=== PATIENT | male | born 1950 | race Caucasian/White ===

== ENCOUNTER 2017-09-02 00:55 | Inpatient (IN) | payer OTHER, MEDICARE ==
[~2017-09-02] VITALS: Ht 170.2 cm; Wt 98.9 kg
[~2017-09-02 00:55] MED LIST: B-1100 MG PO; COZAAR50 M1 PO; FENOFIBRATE160 M1 PO; FOLIC ACID1 M1 PO; HYDROCHLOROTH12.5 M3 PO; LISINOPRIL20 M1 PO; PANTOPRAZOLE SO40 M1 PO; PEPCID40 M1 PO; SERTRALINE HCL50 MG PO; VITAMIN B-121000 MC3 PO
[2017-09-02] MEDS ORDERED: MIRALAX17 G1 PO (08:47)
[2017-09-02] MEDS ORDERED: COLACE100 M1 PO (08:47)
[2017-09-02] MEDS ORDERED: MS CONTIN15 M3 PO (08:47)
[2017-09-02] MEDS ORDERED: PROTONIX20 M1 PO (08:47)
[2017-09-02] MEDS ORDERED: DILAUDID2 M1 PO (08:47)
[2017-09-02] MEDS ORDERED: ASPIRIN EC325 M2 PO (08:47)
--- NOTE | 2017-09-02 08:53 | Patient Discharge Instructions ---
Discharge Instructions General Discharge Information You were seen/treated for: joint pain You had these procedures: right total hip replacement Watch for these problems: temp greater than 101. redness and drainage from wound Other wound care: keep wound clean and dry. OK to shower no baths or swimming Diet Continue normal diet: Yes Activity Activity Self Limited: Yes Activity Limited to: Weight bear as tolerated Acute Coronary Syndrome Inclusion Criteria At DC or during hospital stay patient has or had the following: ACS DIAGNOSIS No Discharge Core Measures Meds if any: Prescribed or Continued at Discharge Meds if any: NOT Prescribed or Continued at Discharge Congestive Heart Failure Inclusion Criteria At DC or during hospital stay patient has or had the following: CHF DIAGNOSIS No Discharge Core Measures Meds if any: Prescribed or Continued at Discharge Meds if any: NOT Prescribed or Continued at Discharge Cerebrovascular accident Inclusion Criteria At DC or during hospital stay patient has or had the following: CVA/TIA Diagnosis No Discharge Core Measures Meds if any: Prescribed or Continued at Discharge Meds if any: NOT Prescribed or Continued at Discharge Venous thromboembolism Inclusion Criteria VTE Diagnosis No VTE Type NONE VTE Confirmed by (Test) NONE Discharge Core Measures - Per Current guidelines, there needs to be overlap - treatment for the first 5 days of Warfarin therapy. - If discharged on Warfarin prior to 5 days of - overlap therapy, the patient will need to be - assessed for post discharge needs including - *Post discharge parental anticoagulation - *Warfarin and/or parental anticoagulation education - *Follow up date to check INR post discharge At least 5 days overlap therapy as Inpatient No Meds if any: Prescribed or Continued at Discharge Note: Overlap Therapy is Warfarin and Anticoagulant Meds if any: NOT Prescribed or Continued at Discharge
--- NOTE | 2017-09-02 08:56 | Admission Core Measures ---
Acute Coronary Syndrome (CM) ACS Core Measures Acute Coronary Syndrome Diagnosis No Congestive Heart Failure (NEW) CHF Core Measures Congestive Heart Failure Diagnosis No Cerebrovascular Accident (NEW) CVA Core Measures CVA/TIA Diagnosis No Venous Thromboembolism VTE Core Ricky (View Protocol) VTE Risk Factors Surgery No Mechanical VTE Prophylaxis d/t N/A MechProphylax Ordered No VTE Pharm Prophylaxis d/t NA PharmProphylax ordered Problem List As ranked by this Provider includes Assessment & Plan 1. Status post total hip replacement, right HOME MEDS Home Med List Aspirin (Ecotrin*) 325 MG TABLET.DR 1 TAB PO BID ANTICOAGULATION Cyanocobalamin (Vitamin B-12) 1,000 MCG TABLET 1 TAB PO DAILY SUPPLEMENT ( Reported) Docusate Sodium (Colace) 100 MG CAPSULE 1 CAP PO BID STOOL SOFTENER Fenofibrate 160 MG TABLET 1 TAB PO DAILY CHOLESTEROL/TRIGLYCERIDES (Reported) Folic Acid 1 MG TABLET 1 TAB PO DAILY SUPPLEMENT (Reported) Hydromorphone HCl (Dilaudid) 2 MG TABLET 1-2 TAB PO Q4-6 PRN PRN PAIN Losartan Potassium (Cozaar) 50 MG TABLET 1 TAB PO DAILY BP (Reported) Morphine Sulfate (Ms Contin) 15 MG TABLET.ER 1 TAB PO BID PAIN Pantoprazole Sodium (Protonix) 20 MG TABLET.DR 1 TAB PO DAILY GI PROTECTION Polyethylene Glycol 3350 (Miralax) 17 GRAM POWD.PACK 1 PAC PO DAILY CONSTIPATION Sertraline HCl 50 MG TABLET 1 TAB PO DAILY MENTAL HEALTH (Reported) Thiamine HCl (B-1) 100 MG TABLET 1 TAB PO DAILY SUPPLEMENT (Reported)
--- NOTE | 2017-09-02 09:00 | Surg Short-stay <48hrs Dis Sum ---
Visit Information Visit Dates Admission Date: 09/02/17 Discharge Date: 09/02/17 Surgical Short Stay DC Summary Admission Diagnosis: R hip OA Final Diagnosis: SP R ANITHA Procedure(s): SP R ANITHA Summary/Significant Findings: 09/02/17 Pt presented for elective R ANITHA, pt tolerated procedure well. Postoperatively, their pain was managed, they voided and was ambulating with PT. WBAT. Cleared by PT for discharge. Condition at Discharge: stable Discharge Disposition: home health services Discharge instructions provided to patient/family: Yes Post discharge follow-up plan: scheduled appointment with Dr. Altamirano in 6 weeks Copies to: Pavel Altamirano MD
--- NOTE | 2017-09-02 10:24 | RADIOLOGY REPORT ---
EXAMINATION: XR HIP, RIGHT CLINICAL INFORMATION: Status-post right hip total arthroplasty. COMPARISON: None. TECHNIQUE: AP and frog-leg lateral views of the right hip. FINDINGS: Prosthetic components of the right total hip arthroplasty are appropriately aligned. No periprosthetic fracture. Gas from recent surgery is present in the surrounding soft tissues. There are femoral atherosclerotic calcifications. IMPRESSION: Normal postoperative appearance of the right total hip prosthesis.
[2017-09-02 10:45] VITALS: BP 160/92
--- NOTE | 2017-09-02 12:28 | PN- Orthopedic ---
Subjective Subjective: PT SITTING IN CHAIR, NO COMPLAINTS. PT IS CONTROLLED. PT AMBULATED WITH PT TOLERATING REG DIET. VOIDED SPONTANEOUSLY Objective Vital Signs and I&Os Vital Signs Date Time Temp Pulse Resp B/P B/P Pulse O2 O2 Flow FiO2 Mean Ox Delivery Rate 09/02 1045 95 Room Air 09/02 1045 97.5 74 18 160/92 95 Room Air Intake & Output 09/02 1600 09/02 0800 09/02 0000 09/01 1600 09/01 0800 09/01 0000 Intake Total 400 Output Total 250 Balance 150 Intake, Oral 400 Output, Urine 250 Patient 218 lb Weight Weight Reported by Patient Measurement Method Physical Exam: GEN- NAD RESP- CLEAR EXT- RIGHT HIP SOFT, DRESSING CLEAN AND DRY. DISTAL SENSATION AND MOVEMENT INTACT. NO CALF TENDERNESS Assessment/Plan Assessment/Plan 67YO M SP RIGHT ANITHA POD0 WILL DC TO HOME WITH HEALTH SERVICES TODAY CLEARED BY PT REG DIET FOLLOW-UP APPINTMENT WITH JAZMIN IN 6 WEEKS DVT PPX- ASA 325 BID ENCOURAGE AMBULATION- WBAT Core Measures Venous Thromboembolism VTE Risk Factors Surgery No Mechanical VTE Prophylaxis d/t N/A MechProphylax Ordered No VTE Pharm Prophylaxis d/t NA PharmProphylax ordered
--- NOTE | 2017-09-02 13:42 | Operative Report ---
Operative/Inv Procedure Report Surgery Date: 09/02/17 Name of Procedure: Right total hip replacement Pre-Operative Diagnosis: Primary right hip DJD Post-Operative Diagnosis: Same Estimated Blood Loss: 250 Surgeon/Support Assistant: Evelia WHITE,Pavel Wesley Anesthesia: block Operative/Procedure Note Note: Description of Procedure: The patient was taken to the operating room and positively identified. After induction of spinal anesthesia and administration of appropriate pre-operative antibiotics, the patient was positioned supine on the operating room table and all bony prominences were well padded. After performing a surgical timeout, the right lower extremity was prepped and draped in the usual sterile fashion. A direct anterior approach was made to the right hip. The incision was carried sharply through superficial soft tissues to the level of the fascia. Meticulous hemostasis was maintained with Bovie electocautery. The fascia over the tensor fascia alberto muscle was opened sharply and the interval between the TFL and the sartorius was entered bluntly taking care to stay lateral to the lateral femoral cutaneous nerve. Retractors were placed around the femoral neck and the pericapsular fat was identified. The ascending branches of the lateral femoral circumflex vessels were identified and carefully coagulated. The pericapsular fat and anterior capsule were then resected. A napkin ring osteotomy was performed and the femoral head was removed without difficulty. Attention was then turned to the acetabulum. After appropriate placement of retractors, the acetabulum was exposed. Soft tissue was cleaned from the acetabular margin and notch. Overhanging osteophytes were removed and the teardrop was exposed. The acetabulum was then sequentially reamed to accept a 60 mm Dai Tritanium hemispherical solid shell. This was impacted into place in the appropriate position and fitted with a 36 mm Trident X3 zero degree polyethylene insert. Attention was then turned to the femur. After performing the appropriate ligament releases, the proximal femur was exposed. It was then sequentially broached to accept a size 7 Dai Accolade II stem. This was trialed for leg length and stability. The trial component was removed and the final component was impacted into place. The trunnion was carefully cleaned and fit with a 36 mm, -2.5 Biolox delta ceramic femoral head. The hip was reduced and put through a full range of motion and found to be stable. The articular space was then irrigated with sterile saline. The periarticular soft tissues were infilitrated with Marcaine. The fascial layer was closed with interrupted #1 vicryl suture and the skin was re-approximated with interrupted 2 -0 vicryl. The skin was closed with a running 3-0 V-Lock suture. Steri-strips and a sterile dressing were applied. The patient was awakened and taken to the recovery room in satisfactory condition.
[2017-09-02 14:08] VITALS: BP 130/90
== END 2017-09-02 15:00 | disposition home health service (06) | DRG 470 ==
LOC: SDA 00:55 → ENRESERV 09:46 → ENTRNSPT 10:16 → EDTRNSPT 10:27 → EDTRNSPTSTS 10:27 → 2NA 10:40 → CMPTRNSPT 11:08 → ENPENDDIS 12:53 → ENTRNSPT 14:45 → 2NA 15:00 → EDTRNSPTSTS 15:03 → CMPTRNSPT 15:07
PROC: 0SR903A Replacement of Right Hip Joint with Ceramic Synthetic Substitute, Uncemented, Open Approach (ICD-10-PCS; principal; 2017-09-02)
DX: M16.11 Unilateral primary osteoarthritis, right hip (principal); N18.3 Chronic kidney disease, stage 3 (moderate); E78.2 Mixed hyperlipidemia; E83.110 Hereditary hemochromatosis; F10.20 Alcohol dependence, uncomplicated; K22.70 Barrett's esophagus without dysplasia; I12.9 Hypertensive chronic kidney disease with stage 1 through stage 4 chronic kidney disease, or unspecified chronic kidney disease; Z82.49 Family history of ischemic heart disease and other diseases of the circulatory system; Z80.1 Family history of malignant neoplasm of trachea, bronchus and lung
CPT/HCPCS: 2NAP; 73502-RT; 97116-GO; 97161-GP; 97530-GO; J0131; J0690; J0735; J1100; J2550